=== PATIENT | male | born 1970 | race Two or more races ===

== ENCOUNTER 2021-06-14 07:55 | Outpatient (REF) | payer OTHER, SELFPAY ==
--- NOTE | ~2021-06-14 | XR_ITS ---
EXAMINATION: AP BILATERAL KNEES STANDING. RIGHT KNEE 2 VIEWS. CLINICAL INFORMATION: Pain in the right knee. COMPARISON: None TECHNIQUE: AP bilateral knee standing. Right knee 2 views. FINDINGS: AP bilateral knee: There is minimal loss of medial compartment joint space both knees. No periarticular spurring of bony erosive changes. There are no loose bodies. Right knee: The patellofemoral compartment joint spaces are normal. There is a small enthesophyte along the anterior patellar and along the patellofemoral joint space suggestive of early degenerative arthritis. No joint effusion seen. XR/XR knee standing BI IMPRESSION: Mild degenerative changes patellofemoral compartment and minimal arthritic changes medial compartment both knees. No loose bodies or suprapatellar joint effusion seen. There is no acute fracture.
--- NOTE | ~2021-06-14 | XR_ITS ---
EXAMINATION: AP BILATERAL KNEES STANDING. RIGHT KNEE 2 VIEWS. CLINICAL INFORMATION: Pain in the right knee. COMPARISON: None TECHNIQUE: AP bilateral knee standing. Right knee 2 views. FINDINGS: AP bilateral knee: There is minimal loss of medial compartment joint space both knees. No periarticular spurring of bony erosive changes. There are no loose bodies. Right knee: The patellofemoral compartment joint spaces are normal. There is a small enthesophyte along the anterior patellar and along the patellofemoral joint space suggestive of early degenerative arthritis. No joint effusion seen. XR/XR knee RT 2V IMPRESSION: Mild degenerative changes patellofemoral compartment and minimal arthritic changes medial compartment both knees. No loose bodies or suprapatellar joint effusion seen. There is no acute fracture.
== END 2021-06-14 07:56 | disposition home or self-care (01) ==
LOC: HO.HOSX 07:55
PROVIDERS: Visit Provider Orthopaedic Surgery
DX: M25.561 Pain in right knee (principal); M25.562 Pain in left knee
CPT/HCPCS: 20610; 73560; 73565; J1040